=== PATIENT | female | born 1945 | race Caucasian/White ===

== ENCOUNTER 2024-12-21 20:06 | Emergency (ER) | payer MEDICARE, MEDICAID, SELFPAY ==
[2024-12-21 20:15] VITALS: BP 165/85; PULSE 86; RESP 17; TEMP 36.7; O2SAT 99
--- NOTE | 2024-12-21 20:15 | XR_ITS ---
Examination: CT brain head without contrast. 2-D sagittal coronal reconstructions Date and time of exam: December 21, 2024, 2037 hours, comparison December 15, 2023 INDICATIONS: Ground-level fall today with injury of the head followed by altered mental status CTDI: vol (mGy): 46.9 DLP: (mGycm): 861 Technique: Multiple CT axial sections of the brain have been obtained, 5 mm slice thickness. Contrast has not been administered. 2-D sagittal, coronal reconstructions have been obtained Low dose protocols were performed. One or more of the following dose reduction techniques were used; automated exposure control, adjustment of the mA and/or KV according to patient size, use of iterative reconstruction technique. Findings: No significant ventricular enlargement. Intra-axial or extra-axial hemorrhage density is not seen. No mass effect or midline shift Basal cisterns are not remarkable. Fourth ventricle is midline. Cranial vault intact. Impression: Negative for acute hemorrhage, mass effect or midline shift
--- NOTE | 2024-12-21 20:16 | EDNOTE_ITS ---
ED General RME/HPI General Chief complaint: Fall Stated complaint: FALL Time Seen by Provider: 12/21/24 20:15 Arrival date/time: 12/21/24 20:06 CC: Ground-level fall HPI patient presents to the ER via EMS from [facility], where the patient is demented. The patient fell getting out of her chair falling backwards onto her behind and then falling on her head. EMS reports stable vital signs the patient is fidgety trying to get out of her gurney which is her baseline. [facility] is requesting a head CT. Patient is not able to tell us if she has any physical pain or not. Review the medical records show patient is a DNR and not on any blood thinners. Related Data Home Medications ?Medication ?Instructions ?Recorded ?Confirmed gabapentin 300 mg capsule 300 mg PO BID 02/20/1905/15 verapamil 80 mg tablet 80 mg PO QDAY 02/20/1905/15 donepezil 10 mg tablet 10 mg PO QDAY 05/15/2105/15 Allergies Allergy/AdvReac Type Severity Reaction Status Date / Time No Known Allergies Allergy Unverified 12/21/24 20:21 Review of Systems Review of Systems Narrative Review of Systems: GEN: No fever, no chills, no weight loss EYES: No discharge, no visual changes, no pain HEENT: No ear pain, no congestion, no sore throat PULM: No shortness of breath, no cough, no congestion CV: No chest pain, no dyspnea on exertion, no palpitations GI: No nausea, no vomiting, no diarrhea, no pain, no constipation : No frequency, no urgency, no dysuria MUSC/SKEL: No joint pain, no back pain SKIN: No rash PSYCH: No hallucinations, no depression HEME/LYMPH: No easy bleeding or bruising tendencies NEURO: No weakness, no headache Past Medical History Past Medical History NEUROLOGIC: Positive Neurological Disorders, Dementia and Alzheimer's Disease CARDIAC: Positive Hypertension; Negative Cardiac Disorders or Congestive Heart Failure RESPIRATORY: Negative Chronic Obstructive Pulmonary Disease (COPD) or Asthma GENITOURINARY: Negative Renal Disease MUSCULOSKELETAL: Positive Fractures ENDOCRINE: Negative Diabetes Mellitus Type 1 or Diabetes Mellitus Type 2 HEMATOLOGIC: Negative Sickle Cell Disease OTHER HISTORY: Positive Blood Transfusions Surgical History SURGICAL: Negative Neurologic Surgery Social History SMOKING STATUS: Never smoker SUBSTANCE USE: does not use ED Exam Narrative Physical exam: [General: Appears not in any acute distress Head normocephalic HEENT: Within acceptable limits Neck is supple nontender Chest equal chest rise nontender to palpation Respiratory: Clear to auscultation no wheezes crackles or rubs CV: Rate rhythm is regular no murmurs rubs or clicks Abdomen is distended secondary to body habitus soft nontender no masses positive bowel sounds all 4 quadrants Back: No CVA tenderness no spinous process tenderness from cervical spine thoracic and lumbar spine Skin: Intact no petechiae rash induration ulceration or crepitus Extremities: Moving all extremity against resistance cap refill less than 2 seconds neurosensory intact Neuro: Awake alert oriented x1, self, Glascow coma 15 no focal deficits] Course Course Course Narrative: Patient is CT of the head was discussed and reviewed by Dr. Gutierrez who feels there is no acute subdural epidural or subarachnoid. Therefore patient will be cleared to discharge home. Quality Measures none Orders Category Date Time Status Saline [Insert IV] NOW Care 12/21/24 20:[address] head/brain wo con Stat Exams 12/21/24 20:15 Taken Midazolam Inj [Versed Inj] Med 12/21/24 20:19 Discontinued 2 mg IVP X1 ONE Vital Signs Vital signs: Vital Signs Temperature 98.1 F 12/21/24 20:15 Pulse Rate 86 12/21/24 20:15 Respiratory Rate 17 12/21/24 20:15 Blood Pressure 165/85 H 12/21/24 20:15 Pulse Oximetry (%) 99 12/21/24 20:15 Oxygen Delivery Method Room Air 12/21/24 20:15 Discharge Plan Plan Patient Disposition: HOME (Self Care) Patient condition on transfer: Stable Prescriptions/Referrals Prescriptions/Med Rec: No Action gabapentin 300 mg Capsule 300 mg PO BID verapamil 80 mg Tablet 80 mg PO QDAY donepezil 10 mg tablet 10 mg PO QDAY Patient Comments: TAKE 1 TABLET BY MOUTH EVERY EVENING Referrals: Orlando Gray MD [Primary Care Provider, Family Practice] - In 1 week Problem List Clinical Impression: Fall Patient/Caregiver Discharge Instructions Education Materials: ED Fall with Uncertain Cause Print Language: Brazilian Stand Alone Forms: Taryn Award Info., Patient Portal Info Letter PA/SUPERVISOR [employer] REMOVAL Supervising Physician PA/SUPERVISOR [employer] REMOVAL Supervising Physician: Omega WHIPPLE Clinical Information Provided by: patient and EMS Medical Records reviewed EMS Meds/Rx considered, not ordered None Labs/Rad/Tests considered, not ordered None Chronic Illness/Social Conditions Explain: Dementia EKG EKG not done Labs Labs: none Imaging Imaging interpretation: interpreted by me Medication Administration(s) Medication Administration History Discontinued Medications Midazolam HCl (Midazolam Inj 1 Mg/Ml Vial 2 Ml) 2 mg IVP X1 ONE Stop: 12/21/24 20:20 Last Admin: 12/21/24 20:30 Dose: 2 mg Documented By: [email or web address]
[2024-12-21] MEDS: MIDAZOLAM INJ 1 MG/ML VIAL 2 ML 2 MG IVP (20:30)
[2024-12-21 20:31] VITALS: BP 106/74; PULSE 76; RESP 18; TEMP 37.1; O2SAT 99; BMI 32.0
[2024-12-21 20:49] VITALS: BP 177/93; PULSE 80; RESP 16; TEMP 37.1; O2SAT 96
[2024-12-21 22:01] VITALS: BP 170/99; PULSE 95; RESP 18; TEMP 37; O2SAT 95
== END 2024-12-21 23:02 | disposition home or self-care (01) ==
PROVIDERS: Emergency Provider Emergency Medicine; PCP Family Medicine
DX: S09.90XA Unspecified injury of head, initial encounter (principal); W07.XXXA Fall from chair, initial encounter; F03.90 Unspecified dementia, unspecified severity, without behavioral disturbance, psychotic disturbance, mood disturbance, and anxiety; Y92.238 Other place in hospital as the place of occurrence of the external cause; Z66 Do not resuscitate
CPT/HCPCS: 70450; 96374; 99283; J2250